=== PATIENT | female | born 1995 | race Hispanic/Latino ===

== ENCOUNTER 2024-01-15 08:47 | Outpatient (CLI) | payer BC | END 2024-01-15 08:48 | disposition home or self-care (01) | LOC: CSHULT 08:47 | PROVIDERS: ATTEND Family Medicine | DX: E04.1 Nontoxic single thyroid nodule (principal); E07.89 Other specified disorders of thyroid | CPT/HCPCS: 76536 ==

== ENCOUNTER 2025-02-14 16:08 | Outpatient (CLI) | payer BC | END 2025-02-14 16:09 | LOC: CSHULT 16:08 | PROVIDERS: ATTEND Family Medicine | DX: E04.1 Nontoxic single thyroid nodule (principal); E04.2 Nontoxic multinodular goiter | CPT/HCPCS: 76536 ==